=== PATIENT | male | born 1960 | race Caucasian/White ===

== ENCOUNTER → 2017-02-08 | Outpatient (CLI) | payer OTHER ==
[~2017-02-08] MED LIST: HYG25 PO; NIFE60TA57 PO
[2017-02-08 09:37] LABS: BASO % 0.7 %; BASO ABS # 0.05 K/uL (0-0.2); COMPLETE YES; HEMATOCRIT 48.8 % (42-52); IG% 0.6 %; LYMPH ABS # 2.38 K/uL (1.2-3.4); MEAN CELL VOLUME 91.2 fL (80-100); MEAN CORPUSCULAR HEMOGLOBIN 31.2 pg (25-34); MEAN CORPUSCULAR HGB CONC 34.2 g/dl (32-36); MEAN PLATELET VOLUME 10.3 fL (7.4-10.4); NEUT % 52.7 %; PLATELET COUNT 266 K/uL (130-400); RED BLOOD COUNT 5.35 M/uL (4.7-6.1)
[2017-02-08 10:02] LABS: ALKALINE PHOSPHATASE 155 U/L (45-117); ALT/SGPT 33 U/L (12-78); AST/SGOT 18 U/L (15-37); BLOOD UREA NITROGEN 13 mg/dl (7-18); BUN/CREATININE RATIO 14.7 (10-20); CALCIUM 9.8 mg/dl (8.5-10.1); CARBON DIOXIDE 30 mmol/L (21-32); CHLORIDE 103 mmol/L (98-107); CHOLESTEROL 202 mg/dl (0-200); CHOLESTEROL/HDL RATIO 4.5; GLUCOSE 102 mg/dl (70-99); HDL CHOLESTEROL 45 mg/dl; LDL CHOLESTEROL CALCULATED 121 mg/dl; POTASSIUM 3.4 mmol/L (3.5-5.1); SODIUM 139 mmol/L (136-145); TRIGLYCERIDES 179 mg/dl (0-150); URIC ACID 7.3 mg/dl (2.6-7.2); VERY LOW DENSITY LIPOPROT CALC 36 mg/dl
== END | disposition home or self-care (01) ==
LOC: C.LAB1850 08:19
PROVIDERS: ATTEND Internal Medicine
DX: M10.9 Gout, unspecified (principal); I10 Essential (primary) hypertension; E78.5 Hyperlipidemia, unspecified; E55.9 Vitamin D deficiency, unspecified

== ENCOUNTER → 2017-08-14 | Outpatient (CLI) | payer OTHER ==
[2017-08-14 15:16] LABS: ALT/SGPT 25 U/L (12-78); BLOOD UREA NITROGEN 14 mg/dl (7-18); BUN/CREATININE RATIO 14.1 (10-20); CALCIUM 9.3 mg/dl (8.5-10.1); CARBON DIOXIDE 28 mmol/L (21-32); CHLORIDE 101 mmol/L (98-107); CHOLESTEROL 186 mg/dl (0-200); CREATININE 0.96 mg/dl (0.60-1.40); GLUCOSE 98 mg/dl (70-99); POTASSIUM 3.5 mmol/L (3.5-5.1); SODIUM 138 mmol/L (136-145); URIC ACID 7.8 mg/dl (2.6-7.2)
[2017-08-14 15:19] LABS: ALKALINE PHOSPHATASE 145 U/L (45-117); AST/SGOT 18 U/L (15-37); CHOLESTEROL/HDL RATIO 4.5; HDL CHOLESTEROL 41 mg/dl; LDL CHOLESTEROL CALCULATED 106 mg/dl; TRIGLYCERIDES 195 mg/dl (0-150); VERY LOW DENSITY LIPOPROT CALC 39 mg/dl
== END | disposition home or self-care (01) ==
LOC: C.LAB1850 11:55
PROVIDERS: ATTEND Internal Medicine
DX: E79.0 Hyperuricemia without signs of inflammatory arthritis and tophaceous disease (principal); E78.00 Pure hypercholesterolemia, unspecified; E78.5 Hyperlipidemia, unspecified; E55.9 Vitamin D deficiency, unspecified

== ENCOUNTER → 2017-11-06 | Outpatient (CLI) | payer OTHER ==
--- NOTE | 2017-11-06 13:34 | DIAGNOSTIC IMAGING REPORT ---
CT LUNG SCREENING, LOW DOSE WITH COMPUTER-AIDED DETECTION (CAD) CLINICAL HISTORY: 57 years-old Male presenting with history of smoking, lung cancer screening. CT DOSE (mGy.cm): The estimated cumulative dose is 70.23 mGycm. TECHNIQUE: Low-dose helical CT was acquired without intravenous contrast from lung apices to bases and reconstructed at 2.5 mm every 2 mm. Computer-Aided detection (CAD) was utilized for this study. A dose lowering technique was used consistent with the principles of ALARA (as low as reasonably achievable). COMPARISON: None. FINDINGS: [employer] topogram: Unremarkable. On soft tissue windows, normal thyroid and thoracic inlet. No axillary, supraclavicular, hilar, or mediastinal lymphadenopathy. Atherosclerosis of the aorta. Normal heart size. Minimal coronary artery calcification. No pericardial or pleural effusion. Upper abdomen normal. On lung windows, apical predominant moderate emphysema affecting the right apex to a greater degree than the left. Mild bronchial wall thickening. Dependent changes likely atelectasis. Bandlike opacity in the lingula likely scarring or atelectasis. No focal nodule. On bone windows, degenerative changes of the spine. CAD FINDINGS: Overall Lung RADS Category: 1 Lung RADS Management Recommendation: Continue annual lung cancer screening. Lung RADS Follow Up Date: 2018-11-06 Lung RADS Nodule ID: IMPRESSION: 1. No pulmonary nodule at this time. Continue annual lung cancer screening. 2. Emphysema. Electronically signed by: Nathan Ordonez M.D. 11/06/2017 1:32 PM Dictated Date/Time: 11/06/2017 1:25 PM
== END | disposition home or self-care (01) ==
LOC: C.CTS 12:54
PROVIDERS: ATTEND Physician Assistant
DX: Z12.2 Encounter for screening for malignant neoplasm of respiratory organs (principal); J98.4 Other disorders of lung; J43.9 Emphysema, unspecified; Z87.891 Personal history of nicotine dependence

== ENCOUNTER → 2017-11-30 | Outpatient (CLI) | payer OTHER ==
[~2017-11-30] MED LIST changes: +CEFAZOLIN SOD 1000MG/7.5 ML IV PUSH IV ONE
== END | disposition home or self-care (01) ==
LOC: C.RC 16:36
PROVIDERS: ATTEND Physician Assistant
DX: J44.9 Chronic obstructive pulmonary disease, unspecified (principal); J98.4 Other disorders of lung